=== PATIENT | female | born 1980 | race Two or more races ===

== ENCOUNTER 2016-06-11 18:42 | Inpatient (IN) | payer MEDICAID, OTHER ==
--- NOTE | 2016-06-11 19:38 | ED ---
General Adult HPI - General Chief complaint: Psychiatric Symptoms Stated complaint: ABDOMINAL PAIN, MENTAL HEALTH Time Seen by Provider: 06/11/16 19:09 Source: patient, RN notes reviewed Mode of arrival: ambulatory - History of Present Illness Initial comments: Patient is a 36-year-old female presents emergency room for abdominal pain and psych evaluation. Patient states that she has a history of bipolar disorder. Patient states she was on Lamictal and Latuda and lost her health insurance. Patient states she has not been taking anything for the past 2 months. Patient states over the past few weeks she's been increasingly depressed and has been having suicidal thoughts. Patient states she was thinking about having someone teach her how to inject heroin into a certain vein to end her life. Patient states she smoked marijuana with cocaine added in it over the weekend. Patient denies homicidal ideations. Patient denies visual auditory hallucinations. Patient also states that she's been developing lower abdominal pain since last night. Patient states pain is in her left lower quadrant and right lower quadrant. Patient states that pain feels like contractions. Patient states that she had a section and tubal ligation but denies any other abdominal surgeries. Patient denies nausea or vomiting. Patient does state that she hasn't had a bowel movement in a few days. Patient denies diarrhea. Patient has any fevers or chills. Patient denies pain or burning during urination, trouble urinating or blood in urine. Patient denies history of kidney stones. Patient denies flank pain. - Related Data Home Medications Medication Instructions Recorded Confirmed Albuterol Inhaler [Ventolin Hfa 2 puff INHALATION RT-Q6H PRN 10/26/15 06/11/16 Inhaler] Loratadine [Claritin] 10 mg PO DAILY 10/26/15 06/11/16 Lurasidone [Latuda] 40 mg PO DAILY 10/26/15 06/11/16 lamoTRIgine [LaMICtal] 100 mg PO TID 10/26/15 06/11/16 Clotrimazole Cream [Lotrimin Cream] 1 applic TOPICAL BID PRN 12/28/15 06/11/16 Mometasone Furoate [Nasonex Nasal 2 sprays EA NOSTRIL DAILY PRN 12/28/15 [place]] Allergies Allergy/AdvReac Type Severity Reaction Status Date / Time amoxicillin Allergy Rash/Hives Verified 06/11/16 22:18 Review of Systems ROS Statement: Those systems with pertinent positive or pertinent negative responses have been documented in the HPI. ROS Other: All systems not noted in ROS Statement are negative. Past Medical History Past Medical History: Asthma History of Any Multi-Drug Resistant Organisms: None Reported Past Surgical History: Section, Tubal Ligation Additional Past Surgical History / Comment(s): pylonidal cyst removal Past Psychological History: Bipolar Smoking Status: Current every day smoker Past Alcohol Use History: Rare Past Drug Use History: Marijuana - Past Family History Father Family Medical History: AFIB, Pneumonia Mother Family Medical History: COPD, Hyperlipidemia, Hypertension Additional Family Medical History / Comment(s): Mental illness. Sister(s) Family Medical History: Deep Vein Thrombosis (DVT) Additional Family Medical History / Comment(s): "cardiac problems" per patient but does not know the name of the disease. Daughter(s) Additional Family Medical History / Comment(s): ADD, Bipolar Son(s) Additional Family Medical History / Comment(s): ADHD, Bipolar General Exam - General Exam Comments Initial Comments: Sitting in exam room, no acute distress, tearful on examination. General appearance: alert Head exam: Present: atraumatic, normocephalic, normal inspection Eye exam: Present: normal appearance ENT exam: Present: normal exam Neck exam: Present: normal inspection Respiratory exam: Present: normal lung sounds bilaterally. Absent: respiratory distress Cardiovascular Exam: Present: regular rate, normal rhythm, normal heart sounds GI/Abdominal exam: Present: soft, tenderness (LLQ/RLQ), normal bowel sounds. Absent: distended, guarding, rebound, rigid Extremities exam: Present: normal inspection Back exam: Present: normal inspection Neurological exam: Present: alert, oriented X3, CN II-XII intact, normal gait Psychiatric exam: Present: normal affect, normal mood Skin exam: Present: warm, dry, intact, normal color. Absent: rash Course Vital Signs 06/11/16 06/11/16 19:00 21:42 Temperature 99.6 F 97.1 F L Pulse Rate 101 H 75 Respiratory 18 16 Rate Blood Pressure 140/82 126/64 O2 Sat by Pulse 98 98 Oximetry Medical Decision Making - Medical Decision Making Patient is a 36-year-old female presents to the emergency room for psychiatric evaluation and abdominal pain. Labs show no significant findings. Patient was evaluated by psych and meets admission criteria. - Lab Data Result diagrams: 06/11/16 19:50 06/11/16 19:50 Lab Results 06/11/16 06/11/16 06/11/16 Range/Units 19:47 19:47 19:50 WBC (3.8-10.6) k/uL RBC (3.80-5.40) m/uL Hgb (11.4-16.0) gm/dL Hct (34.0-46.0) % MCV (80.0-100.0) fL MCH (25.0-35.0) pg MCHC (31.0-37.0) g/dL RDW (11.5-15.5) % Plt Count (150-450) k/uL Neutrophils % % Lymphocytes % % Monocytes % % Eosinophils % % Basophils % % Neutrophils # (1.3-7.7) k/uL Lymphocytes # (1.0-4.8) k/uL Monocytes # (0-1.0) k/uL Eosinophils # (0-0.7) k/uL Basophils # (0-0.2) k/uL Sodium 139 (137-145) mmol/L Potassium 4.5 (3.5-5.1) mmol/L Chloride 106 (98-107) mmol/L Carbon Dioxide 25 (22-30) mmol/L Anion Gap 8 mmol/L BUN 9 (7-17) mg/dL Creatinine 0.80 (0.52-1.04) mg/dL Est GFR (MDRD) Af Amer >60 (>60 ml/min/1.73 sqM) Est GFR (MDRD) Non-Af >60 (>60 ml/min/1.73 sqM) Glucose 97 (74-99) mg/dL Calcium 9.5 (8.4-10.2) mg/dL Total Bilirubin 0.3 (0.2-1.3) mg/dL AST 15 (14-36) U/L ALT 25 (9-52) U/L Alkaline Phosphatase 69 (38-126) U/L Total Protein 6.3 (6.3-8.2) g/dL Albumin 3.9 (3.5-5.0) g/dL Amylase 33 (30-110) U/L Lipase 46 (23-300) U/L Urine Color Colorless Urine Appearance Cloudy H (Clear) Urine pH 6.5 (5.0-8.0) Ur Specific [place] 1.001 (1.001-1.035) Urine Protein Negative (Negative) Urine Glucose (UA) Negative (Negative) Urine Ketones Negative (Negative) Urine Blood Negative (Negative) Urine Nitrate Negative (Negative) Urine Bilirubin Negative (Negative) Urine Urobilinogen <2.0 (<2.0) mg/dL Ur Leukocyte Esterase Trace H (Negative) Urine RBC 1 (0-5) /hpf Urine WBC 4 (0-5) /hpf Ur Squamous Epith Cells 11 H (0-4) /hpf Urine Bacteria Rare H (None) /hpf Urine Mucus Rare H (None) /hpf Urine Yeast (Budding) Occasional H (None) /hpf Urine HCG, Qual Not Detected (Not Detectd) Urine Opiates Screen Detected H (NotDetected) Ur Oxycodone Screen Not Detected (NotDetected) Urine Methadone Screen Not Detected (NotDetected) Ur Propoxyphene Screen Not Detected (NotDetected) Ur Barbiturates Screen Not Detected (NotDetected) U Tricyclic Antidepress Not Detected (NotDetected) Ur Phencyclidine Scrn Not Detected (NotDetected) Ur Amphetamines Screen Not Detected (NotDetected) U Methamphetamines Scrn Not Detected (NotDetected) U Benzodiazepines Scrn Not Detected (NotDetected) Urine Cocaine Screen Detected H (NotDetected) U Marijuana (THC) Screen Not Detected (NotDetected) 06/11/16 Range/Units 19:50 WBC 8.1 (3.8-10.6) k/uL RBC 4.47 (3.80-5.40) m/uL Hgb 13.9 (11.4-16.0) gm/dL Hct 41.8 (34.0-46.0) % MCV 93.5 (80.0-100.0) fL MCH 31.1 (25.0-35.0) pg MCHC 33.2 (31.0-37.0) g/dL RDW 12.9 (11.5-15.5) % Plt Count 211 (150-450) k/uL Neutrophils % 69 % Lymphocytes % 24 % Monocytes % 5 % Eosinophils % 1 % Basophils % 0 % Neutrophils # 5.6 (1.3-7.7) k/uL Lymphocytes # 1.9 (1.0-4.8) k/uL Monocytes # 0.4 (0-1.0) k/uL Eosinophils # 0.1 (0-0.7) k/uL Basophils # 0.0 (0-0.2) k/uL Sodium (137-145) mmol/L Potassium (3.5-5.1) mmol/L Chloride (98-107) mmol/L Carbon Dioxide (22-30) mmol/L Anion Gap mmol/L BUN (7-17) mg/dL Creatinine (0.52-1.04) mg/dL Est GFR (MDRD) Af Amer (>60 ml/min/1.73 sqM) Est GFR (MDRD) Non-Af (>60 ml/min/1.73 sqM) Glucose (74-99) mg/dL Calcium (8.4-10.2) mg/dL Total Bilirubin (0.2-1.3) mg/dL AST (14-36) U/L ALT (9-52) U/L Alkaline Phosphatase (38-126) U/L Total Protein (6.3-8.2) g/dL Albumin (3.5-5.0) g/dL Amylase (30-110) U/L Lipase (23-300) U/L Urine Color Urine Appearance (Clear) Urine pH (5.0-8.0) Ur Specific [place] (1.001-1.035) Urine Protein (Negative) Urine Glucose (UA) (Negative) Urine Ketones (Negative) Urine Blood (Negative) Urine Nitrate (Negative) Urine Bilirubin (Negative) Urine Urobilinogen (<2.0) mg/dL Ur Leukocyte Esterase (Negative) Urine RBC (0-5) /hpf Urine WBC (0-5) /hpf Ur Squamous Epith Cells (0-4) /hpf Urine Bacteria (None) /hpf Urine Mucus (None) /hpf Urine Yeast (Budding) (None) /hpf Urine HCG, Qual (Not Detectd) Urine Opiates Screen (NotDetected) Ur Oxycodone Screen (NotDetected) Urine Methadone Screen (NotDetected) Ur Propoxyphene Screen (NotDetected) Ur Barbiturates Screen (NotDetected) U Tricyclic Antidepress (NotDetected) Ur Phencyclidine Scrn (NotDetected) Ur Amphetamines Screen (NotDetected) U Methamphetamines Scrn (NotDetected) U Benzodiazepines Scrn (NotDetected) Urine Cocaine Screen (NotDetected) U Marijuana (THC) Screen (NotDetected) - Radiology Data Radiology results: report reviewed, image reviewed Disposition Clinical Impression: Bipolar disorder, Depression Disposition: ADMITTED IP TO THIS [facility] Condition: Stable Decision Date: 06/11/16
[2016-06-11 20:07] LABS: Basophils % (A) 0 %; CH 31.6; CHCM 33.9; Eosinophils # (A) 0.1 k/uL (0-0.7); Eosinophils % (A) 1 %; HCT 41.8 % (34.0-46.0); HDW 2.28; HGB 13.9 gm/dL (11.4-16.0); Luc # (Auto) 0.12; Luc % (Auto) 2; Lymphocytes # (A) 1.9 k/uL (1.0-4.8); Lymphocytes % (A) 24 %; MCH 31.1 pg (25.0-35.0); MCHC 33.2 g/dL (31.0-37.0); MCV 93.5 fL (80.0-100.0); Monocytes # (A) 0.4 k/uL (0-1.0); Monocytes % (A) 5 %; Neutrophils # (A) 5.6 k/uL (1.3-7.7); Neutrophils % (A) 69 %; RBC 4.47 m/uL (3.80-5.40); RDW 12.9 % (11.5-15.5); WBC 8.1 k/uL (3.8-10.6); WBC (Perox) 8.42
[2016-06-11 20:16] LABS: Appearance,Urine Cloudy (Clear); Bacteria,Urine Rare /hpf; Bilirubin,Urine Negative (Negative); Glucose,Urine (UA) Negative (Negative); Ketones,Urine Negative (Negative); Leukocyte Esterase,Urine Trace (Negative); Mucus,Urine Rare /hpf; Nitrite,Urine Negative (Negative); PH, Urine 6.5 (5.0-8.0); Particle Count 5526; Protein,Urine Negative (Negative); RBC,Urine 1 /hpf (0-5); Specific Gravity,Urine 1.001 (1.001-1.035); Squamous Epithelial Cell,Urine 11 /hpf (0-4); UA Billing (MACRO vs. MICRO) MICRO; Urobilinogen,Urine <2.0 mg/dL (<2.0); WBC,Urine 4 /hpf (0-5)
[2016-06-11 20:17] LABS: ALT 25 U/L (9-52); AST 15 U/L (14-36); Alkaline Phosphatase 69 U/L (38-126); Amylase 33 U/L (30-110); Anion Gap 8 mmol/L; Blood Urea Nitrogen 9 mg/dL (7-17); Calcium 9.5 mg/dL (8.4-10.2); Carbon Dioxide 25 mmol/L (22-30); Chloride 106 mmol/L (98-107); Glucose 97 mg/dL (74-99); Non-African American GFR(MDRD) >60 (>60 ml/min/1.73 sqM); Potassium 4.5 mmol/L (3.5-5.1); Sodium 139 mmol/L (137-145); Total Bilirubin 0.3 mg/dL (0.2-1.3); Total Protein 6.3 g/dL (6.3-8.2)
--- NOTE | 2016-06-11 21:29 | XR ---
EXAMINATION TYPE: XR KUB DATE OF EXAM: 06/11/2016 9:20 PM COMPARISON: NONE HISTORY: Abdominal pain TECHNIQUE: 2 views FINDINGS: Bowel gas pattern is normal. There is no sign of intestinal obstruction or pneumoperitoneum . Fecal pattern is normal. There are no pathologic calcifications over the kidneys. There are clips f rom tubal ligation. Lung bases are clear. IMPRESSION: Nonacute abdomen.
[2016-06-11 22:11] VITALS: BMI 31.4
[2016-06-11] MEDS ORDERED: MAGNESIUM HYDROXIDE 2,400 MG/10 ML CUP PO PRN (23:11)
[2016-06-11] MEDS ORDERED: MAG HYDROX/AL HYDROX/SIMETH 30 ML CUP PO PRN (23:11)
[2016-06-11] MEDS ORDERED: ACETAMINOPHEN TAB 325 MG TAB PO PRN (23:11)
[2016-06-11] MEDS ORDERED: LORazepam 2 MG/ML SYRINGE IM PRN (23:13)
[2016-06-11] MEDS ORDERED: FLUTICASONE 50MCG/SPRAY NASAL 16GM EA NOSTRIL PRN (23:14)
[2016-06-11] MEDS ORDERED: CLOTRIMAZOLE 1% CREAM 15 GM TUBE TOPICAL PRN (23:14)
[2016-06-12] MEDS: ALBUTEROL INHALER 60 PUFF/8 GM INHALER INHALATION PRN ×3 (08:59→21:51)
[2016-06-12] MEDS: NICOTINE 21MG/24HR PATCH TRANSDERM SCH (09:16)
[2016-06-12] MEDS: LURASIDONE 40 MG TAB PO SCH (09:16)
[2016-06-12] MEDS: LORATADINE 10 MG TAB PO SCH (09:16)
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
[2016-06-12] MEDS ORDERED: SULFAMETHOX-TMP 800-160MG 1 EACH TAB PO SCH (21:00)
[2016-06-12] MEDS ORDERED: lamoTRIgine 25 MG TAB PO SCH (21:00)
[2016-06-12] MEDS: LORazepam 1 MG TAB PO PRN (21:16)
[2016-06-12] MEDS ORDERED: diphenhydrAMINE 25 MG CAP PO PRN (21:55)
[2016-06-12] MEDS: CIPROFLOXACIN HCL 500 MG TAB PO SCH (22:15)
[2016-06-13] MEDS: LORATADINE 10 MG TAB PO SCH (08:26)
[2016-06-13] MEDS: CIPROFLOXACIN HCL 500 MG TAB PO SCH ×2 (08:26→20:50)
[2016-06-13] MEDS: LURASIDONE 40 MG TAB PO SCH (08:26)
[2016-06-13] MEDS: ALBUTEROL INHALER 60 PUFF/8 GM INHALER INHALATION PRN ×4 (08:31→20:40)
[2016-06-13] MEDS: NICOTINE 21MG/24HR PATCH TRANSDERM SCH (08:36)
--- NOTE | 2016-06-13 10:20 | CONS ---
REASON FOR CONSULTATION: Advice regarding bronchitis as well as multiple other medical issues requested by psychiatrist. HISTORY OF PRESENT ILLNESS: This 36-year-old woman with a past medical history of multiple medical problems including asthma, history of section and bipolar depression being followed by Dr. Nails in the outpatient setting . No history of chest pain, palpitations. No history of headache, loss of consciousness, seizures. The patient is using inhalers on a p.r.n. basis, updrafts also. PAST MEDICAL HISTORY: History of bronchial asthma, history of bipolar depression, history of nicotine dependence. Medications are: 1. Lamictal 100 mg p.o. b.i.d. 2. Nasonex 2 sprays daily p.r.n. 3. Latuda 40 mg p.o. daily. 4. Claritin 10 mg daily. 5. Lotrimin 1 application b.i.d. 6. Ventolin HFA 2 puffs every 6 hours. ALLERGIES: AMOXICILLIN. FAMILY HISTORY: History of atrial fibrillation, pneumonia, mental illness in the family. SOCIAL HISTORY: History of cocaine, marijuana, history of nicotine dependence. REVIEW OF SYSTEMS: ENT: No diminished hearing, diminished vision. CARDIOVASCULAR: No angina or palpitations. RESPIRATORY: As mentioned earlier. GI: As mentioned earlier. : No dysuria. NERVOUS: No numbness or weakness. ALLERGY/IMMUNOLOGY: No asthma or hay fever. MUSCULOSKELETAL: As mentioned earlier. HEMATOLOGY/ONCOLOGY: No history of anemia. ENDOCRINE: No history of diabetes, hypothyroidism. CONSTITUTIONAL: As mentioned earlier. DERMATOLOGY: Negative. RHEUMATOLOGY: Negative. PSYCHIATRY: As mentioned earlier. PHYSICAL EXAMINATION: Alert and oriented x3. Pulse is 75, blood pressure 126/64, respirations 16, temperature is 97.1, pulse ox 98% on room air. HEENT: Conjunctivae normal. NECK: No jugular venous distension. CARDIOVASCULAR: S1 and S2 muffled. RESPIRATORY: Breath sounds diminished in the bases. A few scattered rhonchi. No crackles. Abdomen is soft, nontender. No mass palpable. LEGS: No edema. No swelling. NERVOUS SYSTEM: Higher functions as mentioned. Cranial nerves are grossly intact. No facial deviation. Moves all 4 limbs. The power is normal. No sensory abnormalities. LYMPHATIC: No lymphadenopathy in neck, axillae or groin. SKIN: No ulcer, rash or bleeding. LABS: CBC, BMP within normal limits. UA: Possible UTI. ASSESSMENT: 1. Urinary tract infection, present on admission. 2. Depression, bipolar. 3. Positive cocaine in the drug screen. 4. History of bronchial asthma. 5. History of section. 6. History of nicotine dependence. RECOMMENDATIONS AND DISCUSSION: In this 36-year-old woman who presented with multiple medical problems, will monitor the patient closely. Recommend resuming the home medications. Short course of antibiotics, smoking cessation. Otherwise, patient to be asked to follow with Dr. Nails closely after discharge. Will follow the patient closely with you. Thank you, Dr. Hester, for letting us participate in the care of this patient. KENYA
--- NOTE | 2016-06-13 10:24 | P.PN ---
Progress Note - Text Interval history: The patient is found in group she follows me to an interview room. Dr. Chappell psychiatric evaluation was reviewed. Labs were reviewed. Medications reviewed. The patient was admitted with suicidal ideation she states she was trying overdose with cocaine. She had been off of her psychotropic medication since early April due to lack of resources. She was slipping into a depression and her suicidal thinking was triggered by her 17 year-old son telling her she should kill herself. Apparently he stated this after learning she had relapsed with cocaine. She reports that he is living with her ex- and he is influencing her son against her. The patient reports previously being stable with Lamictal 300 mg daily Latuda 40 mg daily. She is not sure what benefit the Latuda provides overall compared to the Lamictal. She has been on antidepressants in the past but it has been several years. She has tried Cymbalta, Zoloft, Prozac, Celexa, Wellbutrin. She has recently relocated to this area from [place] as of September. She states her cocaine use has been infrequent and sporadic. We discussed the potential need for inpatient chemical dependency treatment and she states she does not need that now. Mood is depressed she is feeling hopeless. Mental status exam: The patient is alert she is dressed in hospital gowns she has a piercing of her nose lip and ears. She has numerous tattoos on her upper extremities. Most notably left upper extremity. Eye contact is appropriate. Speech is fluent spontaneous nonpressured. She does not appear to be experiencing racing thoughts she demonstrates no symptoms of hypomania or zac. She describes a depressed mood with hopelessness thinking and suicidal thoughts. No homicidal ideation reported. There is no evidence of psychosis. Insight and judgment limited. She is oriented to person place and date. Affect is bland. Plan: The patient does appear to have a history of bipolar disorder most recent depressed. We will continue the Lamictal but titrate the dose to 25 mg twice daily and we'll titrate this further during the course of his stay. She has found this medication helpful in stabilizing her bipolar symptoms. For now we will continue the Latuda 40 mg daily. We will institute Wellbutrin XL 150 mg in the morning. We will monitor for any triggered hypomanic or manic symptoms with use of Wellbutrin. She is encouraged participate in the milieu we will monitor for safety.
[2016-06-13] MEDS: buPROPion XL 150 MG TAB.ER.24H PO SCH (10:45)
[2016-06-13] MEDS: lamoTRIgine 25 MG TAB PO SCH (20:50)
[2016-06-13] MEDS: LORazepam 1 MG TAB PO PRN (22:40)
[2016-06-14] MEDS: buPROPion XL 150 MG TAB.ER.24H PO SCH (08:17)
[2016-06-14] MEDS: LORATADINE 10 MG TAB PO SCH (08:17)
[2016-06-14] MEDS: CIPROFLOXACIN HCL 500 MG TAB PO SCH ×2 (08:17→20:36)
[2016-06-14] MEDS: lamoTRIgine 25 MG TAB PO SCH ×2 (08:17→20:36)
[2016-06-14] MEDS: NICOTINE 21MG/24HR PATCH TRANSDERM SCH (08:18)
[2016-06-14] MEDS: LURASIDONE 40 MG TAB PO SCH (08:18)
[2016-06-14] MEDS ORDERED: DOXEPIN 10 MG CAP PO PRN (08:42)
--- NOTE | 2016-06-14 08:47 | P.PN ---
Progress Note - Text Interval history: The patient is found in the dining room she follows me to an interview room. She reports that she was crying during a portion of the day after speaking with her father on the phone. She states that she has always felt like the "black sheep" of the family and no longer feels included in events. She reports she was not included in holiday family gatherings. She states there is a rift between her and the sister that adopted her daughter. The patient reports having some difficulty sleeping last night energy is subsequently low. She continues to have hopeless thoughts but feels safe here in the hospital. She has no questions regarding her medications other than wanting something for sleep. She states she attended all but one group yesterday. She reports appetite is stable. Mental status exam: The patient is seated calmly in the chair she is dressed in hospital attire hygiene grooming appear to be adequate. Eye contact is appropriate speech is fluent spontaneous nonpressured. She reports a depressed mood she demonstrates tearfulness during the session she reports hopelessness thinking with intermittent suicidal thoughts. She does feel comforted that she is here as she knows she will harm herself here. She is endorsing no hallucinations or specific delusions there is no evidence of psychosis. There is no demonstration of flight of ideas or loose associations. She is alert and oriented to person place and date. Insight and judgment limited. Plan: The patient will continue on her current medications we will consider titrating the Wellbutrin XL further. We will continue to titrate the Lamictal further during the hospitalization. We will initiate doxepin 10 mg at bedtime as needed for insomnia. We discussed some of her family dynamics. She would like for these family relationships to improve. She does have a family meeting scheduled today with her father. The patient requires continued psychiatric hospitalization. We will monitor her for safety and encourage her participation in the milieu.
[2016-06-14] MEDS: ALBUTEROL INHALER 60 PUFF/8 GM INHALER INHALATION PRN ×2 (11:01→19:04)
[2016-06-15 06:45] VITALS: RESP 16; TEMP 98.3
[2016-06-15] MEDS ORDERED: ZOLPIDEM 10 MG TAB PO PRN (08:27)
--- NOTE | 2016-06-15 08:32 | P.PN ---
Progress Note - Text Interval history: The patient is found in the dining room she follows me to an interview room. She reports that her moods improving. She states that she had a good visit with her father and it went better than she thought. She did not find the doxepin helpful for sleep last night. She feels the day yesterday went better and she attended groups. She demonstrates future oriented thinking and wanting to attend a family gathering at the end of the month at her sister' s. Appetite stable. We discussed titrating the Wellbutrin and the Lamictal further and she is agreeable. Mental status exam: The patient is alert she is dressed in hospital gowns she seated calmly in the chair. Hygiene grooming adequate. She has a lower lip piercing and several visible tattoos. Speech is fluent spontaneous nonpressured. She reports her mood is improving hopelessness thinking is resolving no acute suicidal ideation today. She does not appear hypomanic or manic there is no evidence of psychosis. Insight and judgment improving. Affect demonstrates more range appropriately. She demonstrates no verbal or physical aggressiveness. Plan: The patient will continue on the Wellbutrin XL we will titrate the dose to 300 mg in the morning, we will increase Lamictal to 50 mg twice daily, maintain Latuda. She remains on Cipro for UTI. She complains of having a yeast infection because of antibiotic use. We will consider use of Diflucan. If she continues to demonstrate clinical improvement/stability we will consider discharging her tomorrow.
[2016-06-15] MEDS: LORATADINE 10 MG TAB PO SCH (08:44)
[2016-06-15] MEDS: CIPROFLOXACIN HCL 500 MG TAB PO SCH (08:44)
[2016-06-15] MEDS: NICOTINE 21MG/24HR PATCH TRANSDERM SCH (08:44)
[2016-06-15] MEDS: buPROPion XL 300 MG TAB.ER.24H PO SCH (08:45)
[2016-06-15] MEDS: LURASIDONE 40 MG TAB PO SCH (08:45)
[2016-06-15] MEDS: lamoTRIgine 25 MG TAB PO SCH ×2 (08:45→20:07)
[2016-06-15] MEDS: ALBUTEROL INHALER 60 PUFF/8 GM INHALER INHALATION PRN ×3 (09:25→21:23)
[2016-06-15] MEDS ORDERED: FLUCONAZOLE 100 MG TAB PO ONE (14:52)
[2016-06-16 05:25] VITALS: BP 111/53; PULSE 59
--- NOTE | 2016-06-16 08:01 | PN ---
I was asked to see the patient again because of vaginal candidiasis. This 36-year-old female is being treated for cystitis with ciprofloxacin as well as the patient has started to have vaginal candidiasis. Patient is on ( ) to complete a 3-day course of therapy. I believe Cipro can be discontinued and patient will be given one dose of fluconazole 200 mg. REVIEW OF SYSTEMS: CARDIOVASCULAR: No chest pain, no orthopnea, no PND, no palpitations. PULMONARY: Denied any shortness of breath. No cough or hemoptysis. GASTROINTESTINAL: No diarrhea, nausea or vomiting. No abdominal pain. Normoactive bowel sounds. NEUROLOGIC: No headaches, no weakness, no numbness. Medications were reviewed. PHYSICAL EXAMINATION: VITAL SIGNS: Temperature 98.3, pulse of 86, respiratory rate of 16, blood pressure 127/71, saturating at 89% on room air. GENERAL: The patient is alert and oriented x3, not in any acute distress. Well developed, well nourished. HEENT: Pupils are round and equally reacting to light. EOMI. No scleral icterus. No conjunctival pallor. Normocephalic, atraumatic. No pharyngeal erythema. No thyromegaly. CARDIOVASCULAR: S1 and S2 present. No murmurs, rubs, or gallops. PULMONARY: Chest is clear to auscultation, no wheezing or crackles. ABDOMEN: Soft, nontender, nondistended, normoactive bowel sounds. No palpable organomegaly. MUSCULOSKELETAL: No joint swelling or deformity. EXTREMITIES: No cyanosis, clubbing, or pedal edema. NEUROLOGICAL: Gross neurological examination did not reveal any focal deficits. SKIN: No rashes. LABORATORY DATA: None available. ASSESSMENT AND PLAN: 1. Cystitis, urinary tract infection cystitis. Complete a course of antibiotic therapy. Discontinue Cipro. 2. Vaginal candidiasis, due to antibiotics. 3. Bipolar depression. 4. History of bronchial asthma. 5. History of section. 6. Nicotine dependence. PLAN: As mentioned above.
[2016-06-16] MEDS: NICOTINE 21MG/24HR PATCH TRANSDERM SCH (08:26)
[2016-06-16] MEDS: LURASIDONE 40 MG TAB PO SCH (08:26)
[2016-06-16] MEDS: lamoTRIgine 25 MG TAB PO SCH (08:27)
[2016-06-16] MEDS: buPROPion XL 300 MG TAB.ER.24H PO SCH (08:27)
[2016-06-16] MEDS: LORATADINE 10 MG TAB PO SCH (08:27)
[2016-06-16] MEDS ORDERED: PNEUMOCOCCAL VACC-PNEUMOVAX 23 25 MCG/0.5 ML VIAL IM ONE (09:00)
[2016-06-16] MEDS ORDERED: INFLUENZA VACCINE (3YR+) 60 MCG/0.5 ML SYRINGE IM ONE (09:00)
[2016-06-16] MEDS: ALBUTEROL INHALER 60 PUFF/8 GM INHALER INHALATION PRN (09:28)
--- NOTE | 2016-06-16 09:39 | P.DS ---
Providers Date of admission: 06/11/16 21:26 Expected date of discharge: 06/16/16 Attending physician: Micah Young Consults: 06/11/16 23:11 Consult Physician Routine Consulting Provider: Yamila Yousif Consult Reason/Comments: H and P with medical follow up. Do you want consulting provider notified?: Already Contacted Primary care physician: Jaqui Renae - Discharge Diagnosis(es) (1) Major depressive disorder Current Visit: Yes Status: Acute Priority: High Hospital Course: Brief summary of admission note: This patient is a 36-year-old Israeli female who was admitted to the mental health unit through the emergency room for increasing symptoms of depression and suicidal ideation. She was admitted to the mental health unit by Dr. Arora. She reported feeling more depressed over the last several months. There had been some interpersonal conflict amongst family members. She became overwhelmed and hopeless. She had been off of her medication specifically Lamictal and Latuda. She states she had overdosed with [id number] medications prior to coming in. For full details please refer to Dr. Arora's psychiatric evaluation dated 06/12/2016. Summary of hospital course: The patient was admitted to the mental health unit voluntarily. Her symptoms were reviewed medication options were discussed. She was restarted on Lamictal and Latuda. I did assume care of the patient upon my return. We discussed her symptoms further and decided to initiate Wellbutrin XL titrating to 300 mg daily. She has been relapsing with cocaine use. We discussed this in detail and offered the opportunity to explore residential treatment for chemical dependency reasons. She does not wish to pursue that treatment option but states that she will go to outpatient meetings. The patient reported a progressive improvement of symptoms while here. She demonstrated no agitated behavior. She was treated for urinary tract infection and subsequently used infection. She did participate in a support meeting involving her father and that went quite well. She reported some difficulties with sleep at night but primarily because she was here in the hospital. Mental status exam: The patient is a 36-year-old Israeli female appearing her stated age. She is dressed in hospital gowns. She has numerous tattoos visible on her upper extremities and a lower lip piercing. Hygiene grooming adequate. Eye contact appropriate. She reports that her mood is improved she is endorsing no hopelessness thinking no suicidal ideation intent or plan. There is no evidence of psychosis and she does not appear hypomanic or manic. Speech was fluent spontaneous nonpressured. There is no verbal or physical aggressiveness demonstrated no other psychomotor agitation. Insight and judgment improving. Cognitively she remains stable she is alert and oriented to person place and date. She is able to name the days of the week as a concentration task. She demonstrates future oriented thinking specifically discussing going to her [place] at the end of the month. Memory remains grossly intact. Impressions 1. Major depressive disorder recurrent severe without psychosis, rule out bipolar disorder, cocaine use disorder, opiate use disorder 2. Borderline personality disorder traits 3. Recent urinary tract infection, yeast infection 4. Psychosocial dysfunction secondary to psychiatric symptoms including substance use and personality disorder traits Plan: The patient will be discharged from mental health unit today. Social work will arrange for outpatient mental health follow-up. She will continue on Wellbutrin XL 300 mg daily, Lamictal 50 mg twice daily, Latuda 40 mg daily. She is instructed to abstain from any use of alcohol or illicit drugs. She does not wish to participate in inpatient chemical dependency treatment at this time but is willing to attend meetings. She is not at imminent safety risk and is appropriate for transition to outpatient care. Clearly her continued use of substances would elevate her safety risk. She is instructed to return to the hospital with any acute safety concerns. She will follow up with her primary care physician as needed. Patient Condition at Discharge: Stable Plan - Discharge Summary New Discharge Prescriptions: Lurasidone [Latuda] 40 mg PO DAILY #30 tab Nicotine 21Mg/24Hr Patch [Habitrol] 1 patch TRANSDERM DAILY #14 patch buPROPion XL [Wellbutrin XL] 300 mg PO DAILY #30 tab.er.24h lamoTRIgine [LaMICtal] 50 mg PO BID #60 tab Discharge Medication List Albuterol Inhaler [Ventolin Hfa Inhaler] 2 puff INHALATION RT-Q6H PRN 10/26/15 [ History] Loratadine [Claritin] 10 mg PO DAILY 10/26/15 [History] Clotrimazole Cream [Lotrimin Cream] 1 applic TOPICAL BID PRN 12/28/15 [History] Mometasone Furoate [Nasonex Nasal [place]] 2 sprays EA NOSTRIL DAILY PRN 12/28/15 [History] Lurasidone [Latuda] 40 mg PO DAILY #30 tab 06/16/16 [Rx] Nicotine 21Mg/24Hr Patch [Habitrol] 1 patch TRANSDERM DAILY #14 patch 06/16/16 [ Rx] buPROPion XL [Wellbutrin XL] 300 mg PO DAILY #30 tab.er.24h 06/16/16 [Rx] lamoTRIgine [LaMICtal] 50 mg PO BID #60 tab 06/16/16 [Rx] Follow up Appointment(s)/Referral(s): [facility] [Outside] - 06/20/16 1:15 pm (Intake appointment 06/20/16 at 1:15 pm selene/ [facility]) Batool Nails MD [Primary Care Provider] - 1 Week
== END 2016-06-16 10:58 | disposition home or self-care (01) | DRG 885 ==
LOC: EC 18:42 → 3MHU 21:26
PROVIDERS: ADMIT Psychiatry & Neurology Psychiatry; ATTEND Psychiatry & Neurology Psychiatry
DX: F33.2 Major depressive disorder, recurrent severe without psychotic features (principal); R45.851 Suicidal ideations; J44.9 Chronic obstructive pulmonary disease, unspecified; B37.3 Candidiasis of vulva and vagina; F14.10 Cocaine abuse, uncomplicated; F11.10 Opioid abuse, uncomplicated; N30.90 Cystitis, unspecified without hematuria; F17.200 Nicotine dependence, unspecified, uncomplicated; F60.3 Borderline personality disorder; J45.909 Unspecified asthma, uncomplicated; G47.9 Sleep disorder, unspecified; Z91.410 Personal history of adult physical and sexual abuse; Z91.5 Personal history of self-harm; Z79.899 Other long term (current) drug therapy; Z88.1 Allergy status to other antibiotic agents; Z82.49 Family history of ischemic heart disease and other diseases of the circulatory system
CPT/HCPCS: 36415; 74000; 80053; 80306; 81001; 81025; 82075; 82150; 83520; 83690; 84443; 85025; 90686; 90732; 94640; 99284

== ENCOUNTER → 2018-04-22 | Outpatient (CLI) | payer OTHER ==
[2018-04-22 21:05] LABS: T4, Free (Free Thyroxine) 1.1 ng/dL (0.80-1.80)
[2018-04-22 21:16] LABS: Lithium 0.9 mmol/L (1.0-1.2)
== END | disposition home or self-care (01) ==
LOC: LABWHC1 11:32
PROVIDERS: ATTEND Psychiatry & Neurology Psychiatry
DX: Z51.81 Encounter for therapeutic drug level monitoring (principal); Z79.899 Other long term (current) drug therapy
CPT/HCPCS: 36415; 80061; 80178; 82565; 82947; 83036; 84439; 84443; 84520

== ENCOUNTER → 2018-04-23 | Outpatient (CLI) | payer OTHER ==
[2018-04-23 13:37] VITALS: BP 110/58; PULSE 74; TEMP 97.2; BMI 30.5
--- NOTE | 2018-04-23 14:33 | P.HPOB ---
History of Present Illness H&P Date: 04/23/18 Chief Complaint: The patient is here for her routine gynecologic exam and mammogram. This is a 38-year-old G2 PII with an LMP of approximately July 2017. The patient is status post tubal sterilization. She states she has a history of very heavy and long menstrual periods. Her menses typically have then very heavy during the 1st 5 days and states that pads or tampons were almost useless. Her menstrual periods would last up to 14 days. She was started on Depo-Provera about 9 months ago because of the heavy menstrual periods. She has been amenorrheic since then. She is otherwise without complaints. Review of Systems The patient has gained 20 pounds over the last year, but this was after losing 60 pounds during her bout with uncontrolled bipolar disorder. She denies respiratory, cardiac, or G.I. problems. Past Medical History Past Medical History: Asthma, Skin Disorder Additional Past Medical History / Comment(s): Seasonal allergies, ezcema and psychiatric disorders. Past SURGICAL NURSE PRACTITIONER history: she was treated for trichomonas in the past. She had a cold knife conization of the cervix for cervical dysplasia approximately 2014. History of Any Multi-Drug Resistant Organisms: None Reported Date of last positivie culture/infection: None MDRO Source:: None Past Surgical History: Section (x1 with tubal ligation.), Tubal Ligation Additional Past Surgical History / Comment(s): pylonidal cyst removal Past Anesthesia/Blood Transfusion Reactions: No Reported Reaction Past Psychological History: Anxiety, Bipolar, PTSD Additional Psychological History / Comment(s): Borderline personality disorder. Smoking Status: Current every day smoker (One third to half pack of cigarettes per day.) Past Alcohol Use History: Rare (10 per year) Additional Past Alcohol Use History / Comment(s): smokes 15 cig per day,started smoking at age 13 Past Drug Use History: Cocaine (Crack cocaine,), Marijuana Additional Drug Use History / Comment(s): Patient states that she has relapsed on cocaine, Patient states that she smokes marijuana-last used cocaine and marijuana in January 2017,on occasional currently under tx with [facility] - Past Family History Father Family Medical History: AFIB, Pneumonia Additional Family Medical History / Comment(s): PTSD. Paternal uncle had schizophrenia. Paternal grandmother had breast cancer and a male paternal cousin had breast cancer. Mother Family Medical History: COPD, Hyperlipidemia, Hypertension Additional Family Medical History / Comment(s): Mental illness. Maternal uncle had bipolar disorder. Sister(s) Family Medical History: Deep Vein Thrombosis (DVT) Additional Family Medical History / Comment(s): "cardiac problems" per patient but does not know the name of the disease. Daughter(s) Additional Family Medical History / Comment(s): ADD, Bipolar Son(s) Additional Family Medical History / Comment(s): ADHD, Bipolar Medications and Allergies Home Medications Medication Instructions Recorded Confirmed Type Albuterol Inhaler [Ventolin Hfa 2 puff INHALATION RT-Q6H PRN 10/26/15 04/23/18 History Inhaler] Loratadine [Claritin] 10 mg PO DAILY 10/26/15 04/23/18 History Fluticasone Nasal [place] [Flonase 1 spray EA NOSTRIL DAILY 05/02/17 04/23/18 History Nasal [place]] buPROPion XL [Wellbutrin XL] 450 mg PO QAM 05/02/17 04/23/18 History [place] Carbonate [Lithobid] 900 mg PO HS 04/23/18 04/23/18 History medroxyPROGESTERone [Depo-Provera] 150 mg IM DIRECTED 04/23/18 04/23/18 History risperiDONE [risperiDONE ODT] 3 mg PO HS 04/23/18 04/23/18 History traZODone HCL [Desyrel] 100 mg PO 04/23/18 History Allergies Allergy/AdvReac Type Severity Reaction Status Date / Time amoxicillin Allergy Rash/Hives Verified 04/23/18 13:29 Sulfa (Sulfonamide Allergy Rash/Hives Verified 04/23/18 13:29 Antibiotics) sulfamethoxazole Allergy Rash/Hives Verified 04/23/18 13:29 [From Bactrim] trimethoprim [From Bactrim] Allergy Rash/Hives Verified 04/23/18 13:29 Exam Vital Signs Temp Pulse BP 04/23/18 13:30 97.2 F L 74 110/58 Intake and Output 04/22/18 04/23/18 04/23/18 22:59 06:59 14:59 Other: Weight 88.451 kg Height 5'7", weight 195 pounds, BMI 30.5. This is a well-developed well-nourished white female who is alert and oriented times 3 in no acute distress. She has multiple tattoos. HEENT: Within normal limits. NECK: Supple without mass or thyromegaly. CHEST AND LUNGS: Clear to auscultation. HEART: Regular rate and rhythm. BREASTS: Are without mass or discharge. AXILLARY EXAM: Negative for adenopathy. BACK: Negative for CVA tenderness. ABDOMEN: Soft, nontender, without palpable masses. PELVIC EXAM: Normal external genitalia. Cervix and vagina appear normal. The cervix is slightly friable upon doing the Pap smear. There is no unusual discharge. There is no evidence of prolapse. The uterus is midposition, nongravid size and nontender. There are no palpable adnexal masses or tenderness. RECTAL EXAM: negative for mass or tenderness and is negative for occult blood. EXTREMITIES: Nontender. IMPRESSION: 1. 38-year-old female who is status post tubal sterilization with normal gynecologic exam. 2. History of hypermenorrhea improved with Depo-Provera. 3.amenorrhea on Depo-Provera . 4.family history of breast cancer in a paternal grandmother and the paternal male cousin. 5.previous colonization of the cervix for cervical dysplasia in approximately 2014. PLAN: 1. Pap smear was performed. 2. Self breast awareness was discussed with the patient. 3. Baseline screening mammogram will be done today based on her family history of breast cancer. I have recommended yearly mammograms. 4. She will continue to get Depo-Provera injections to Dr. Nails's office. These are done every 3 months. 5. We have discussed how Depo-Provera can decrease bone strength. Osteoporosis prevention was discussed. She is interested in possibly getting the endometrial ablation for her history of hypermenorrhea. The [employer] handout on endometrial ablation was given to the patient (FAQ 134). She will call she desires to get a referral for possible endometrial ablation. 6. She will return in one year.
--- NOTE | 2018-04-23 14:51 | MM ---
Reason for exam: screening (asymptomatic). Baseline mammogram. History: Family history of breast cancer in paternal grandmother at age 40 and breast cancer in cousin at age 18. Taking hormonal contraceptives beginning at age 18. Physical Findings: Dr. Smith did breast exam. MG Screening Mammo w CAD Bilateral CC and MLO view(s) were taken. The breast tissue is heterogeneously dense. This may lower the sensitivity of mammography. These results were verbally communicated with the patient and result sheet given to the patient on 04/23/18. ASSESSMENT: Benign, BI-RAD 2 RECOMMENDATION: Routine screening mammogram of both breasts in 1 year.
== END ==
LOC: WWCWWP 12:55
PROVIDERS: ATTEND Obstetrics & Gynecology
DX: Z12.31 Encounter for screening mammogram for malignant neoplasm of breast (principal)
CPT/HCPCS: 77067

== ENCOUNTER → 2018-08-13 | Outpatient (CLI) | payer OTHER ==
[2018-08-13 12:00] LABS: Basophils % (A) 0 %; Eosinophils # (A) 0.1 k/uL (0-0.7); Eosinophils % (A) 2 %; HCT 39.8 % (34.0-46.0); HGB 12.6 gm/dL (11.4-16.0); Lymphocytes % (A) 29 %; MCH 30.5 pg (25.0-35.0); MCHC 31.6 g/dL (31.0-37.0); MCV 96.8 fL (80.0-100.0); Mean Platelet Volume 7.4; Monocytes # (A) 0.3 k/uL (0-1.0); Monocytes % (A) 4 %; Neutrophils # (A) 4.2 k/uL (1.3-7.7); Neutrophils % (A) 63 %; Platelet Count 188 k/uL (150-450); RBC 4.11 m/uL (3.80-5.40); RDW 12.2 % (11.5-15.5); WBC 6.8 k/uL (3.8-10.6)
[2018-08-13 18:04] LABS: Albumin 4.3 g/dL (3.80-4.90); Albumin/Globulin Ratio 2.53 (1.60-3.17); Anion Gap 3.4 mmol/L (4.00-12.00); Calcium 9.3 mg/dL (8.7-10.3); Carbon Dioxide 22.6 mmol/L (21.6-31.8); Globulin 1.7 g/dL (1.6-3.3); LDL Cholesterol,Calculated 95.8 mg/dL (0.0-131.0); Lithium 0.7 mmol/L (1.0-1.2); Potassium 4.2 mmol/L (3.5-5.5); Total Bilirubin 0.3 mg/dL (0.3-1.2); VLDL Calculation 16.2 mg/dL (5.00-40.00)
[2018-08-13 19:35] LABS: Hemoglobin A1C 4.9 % (4.0-6.0)
== END ==
LOC: LABWHC1 10:53
PROVIDERS: ATTEND Physician Assistant
DX: Z51.81 Encounter for therapeutic drug level monitoring (principal); Z79.899 Other long term (current) drug therapy
CPT/HCPCS: 36415; 80053; 80061; 80178; 83036; 85025

== ENCOUNTER → 2018-10-21 | Outpatient (CLI) | payer OTHER ==
[2018-10-21 16:51] LABS: Anion Gap 3.7 mmol/L (4.00-12.00); Carbon Dioxide 22.3 mmol/L (21.6-31.8); Lithium 0.5 mmol/L (1.0-1.2); Potassium 4.1 mmol/L (3.5-5.5)
== END | disposition home or self-care (01) ==
LOC: LABWHC1 11:15
PROVIDERS: ATTEND Physician Assistant
DX: Z51.81 Encounter for therapeutic drug level monitoring (principal); Z79.899 Other long term (current) drug therapy
CPT/HCPCS: 36415; 80048; 80178

== ENCOUNTER → 2019-02-14 | Outpatient (CLI) | payer OTHER | END | disposition home or self-care (01) | LOC: LABWHC1 09:23 | PROVIDERS: ATTEND Psychiatry & Neurology Psychiatry | DX: Z51.81 Encounter for therapeutic drug level monitoring (principal); Z79.899 Other long term (current) drug therapy | CPT/HCPCS: 36415; 80178 ==